=== PATIENT | male | born 1955 | race Caucasian/White ===

== ENCOUNTER → 2016-04-18 | Outpatient (CLI) | payer OTHER ==
[~2016-04-18] MED LIST: FLUT1INH7 INH; FURO-85 PO; HYDR-5688 PO; LISI-725 PO; METF1000 PO; METF1TAB53 PO; MULTCAP7 PO; OXYC5TAB PO; PRVHFAIN INH
--- NOTE | 2016-04-18 08:58 | DIAGNOSTIC IMAGING REPORT ---
CHEST 2 VIEWS ROUTINE CLINICAL HISTORY: Recurrent left pleural effusion. COMPARISON STUDY: Chest radiograph March 13, 2016. FINDINGS: Cardiomegaly is unchanged. The left pleural catheter has been removed. There is no pneumothorax. A small to moderate left pleural effusion has slightly increased. This may be loculated. There is no evidence for pulmonary edema. IMPRESSION: Slight increase in size of a small to moderate left pleural effusion which may be loculated. Electronically signed by: Hosea Pathak M.D. 04/18/2016 8:56 AM
== END | disposition home or self-care (01) ==
LOC: C.RAD 08:36
PROVIDERS: ATTEND Surgery
DX: J80 Acute respiratory distress syndrome (principal)

== ENCOUNTER → 2016-05-07 | Outpatient (CLI) | payer OTHER ==
--- NOTE | 2016-05-07 17:50 | ECHOCARDIOGRAM REPORT ---
*NOTICE TO RECEIVING DEMOCRAT AGENCY This information is strictly Confidential and protected under [place] law. [place] law prohibits you from making any further disclosure of this information unless further disclosure is expressly permitted by the written consent of the person to whom it pertains or is authorized by law. A general authorization for the release of medical or other information is not sufficient for this purpose. Hospital accepts no responsibility if the information is made available to any other person, INCLUDING THE PATIENT. 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 Mildly dilated left ventricle with mildly to moderately reduced systolic function. EF 40-45%. Global hypokinesis. No left ventricular hypertrophy. Diastolic dysfunction, Grade II (pseudonormalization pattern). * 2. No significant valvular abnormalities visualized. * 3. Technically difficult study. * 4. No prior study available for comparison. Procedure Details * A complete two-dimensional transthoracic echocardiogram was performed (2D, M-mode, Doppler and color flow Doppler). Left Ventricle * Mildly dilated left ventricle with mildly to moderately reduced systolic function. EF 40-45%. Global hypokinesis. No left ventricular hypertrophy. Right Ventricle * The right ventricle is normal in size and function. Atria * The left atrial size is normal. * Right atrial size is normal. * There is no evidence of atrial septal defect, but resolution does not allow assessment for a patent foramen ovale. Mitral Valve * The mitral valve is grossly normal. * There is no mitral valve stenosis. * Significant mitral regurgitation is absent. Tricuspid Valve * The tricuspid valve is not well visualized. * There is no tricuspid stenosis. * Significant tricuspid regurgitation is absent. Aortic Valve * The aortic valve is trileaflet. * No hemodynamically significant valvular aortic stenosis. * There is no significant aortic regurgitation. Pulmonic Valve * The pulmonary valve is inadequately visualized, but the Doppler data is adequate for interpretation. * There is no pulmonic valvular stenosis. * There is no significant pulmonary regurgitation. Great Vessels * The aortic root is normal size. Pericardium/Pleural * There is no pericardial effusion. Great Vessels * Normal inferior vena cava size and collapsability with sniff indicates a normal right atrial pressure of 3 mmHg Left Ventricular Diastolic Function * Diastolic dysfunction, Grade II (pseudonormalization pattern). MMode 2D Measurements and Calculations IVSd 1.1 cm IVSs 1.5 cm LVIDd 5.6 cm LVIDs 4.1 cm LVPWd 1.0 cm LVPWs 1.5 cm IVS/LVPW 1.1 FS 27.0 % EDV(Teich) 151.0 ml ESV(Teich) 72.4 ml EF(Teich) 52.0 % EDV(cubed) 171.6 ml ESV(cubed) 66.8 ml EF(cubed) 61.1 % % IVS thick 31.9 % % LVPW thick 45.8 % LV mass(C)d 234.4 grams LV mass(C)dI 95.6 grams/m\S\2 LV mass(C)s 229.8 grams LV mass(C)sI 93.7 grams/m\S\2 SV(Teich) 78.6 ml SI(Teich) 32.0 ml/m\S\2 SV(cubed) 104.8 ml SI(cubed) 42.8 ml/m\S\2 Ao root diam 4.2 cm Ao root area 13.7 cm\S\2 LA dimension 2.9 cm LA/Ao 0.69 LVOT diam 2.0 cm LVOT area 3.1 cm\S\2 LVAd ap4 28.1 cm\S\2 LVLd ap4 7.2 cm EDV(MOD-sp4) 91.1 ml EDV(sp4-el) 93.0 ml LVAs ap4 21.2 cm\S\2 LVLs ap4 7.2 cm ESV(MOD-sp4) 54.4 ml ESV(sp4-el) 52.6 ml EF(MOD-sp4) 40.2 % EF(sp4-el) 43.4 % LVAd ap2 31.9 cm\S\2 LVLd ap2 7.9 cm EDV(MOD-sp2) 112.5 ml EDV(sp2-el) 108.8 ml LVAs ap2 23.2 cm\S\2 LVLs ap2 7.5 cm ESV(MOD-sp2) 69.7 ml ESV(sp2-el) 60.9 ml EF(MOD-sp2) 38.1 % EF(sp2-el) 44.1 % LVLd %diff 8.9 % EDV(MOD-bp) 105.5 ml LVLs %diff 3.8 % ESV(MOD-bp) 62.3 ml EF(MOD-bp) 40.9 % SV(MOD-sp4) 36.6 ml SI(MOD-sp4) 14.9 ml/m\S\2 SV(MOD-sp2) 42.9 ml SI(MOD-sp2) 17.5 ml/m\S\2 SV(MOD-bp) 43.2 ml SI(MOD-bp) 17.6 ml/m\S\2 SV(sp4-el) 40.4 ml SI(sp4-el) 16.5 ml/m\S\2 SV(sp2-el) 48.0 ml SI(sp2-el) 19.6 ml/m\S\2 Doppler Measurements and Calculations MV E max yosef 76.2 cm/sec MV A max yosef 59.1 cm/sec MV E/A 1.3 MV P1/2t max yosef 70.7 cm/sec MV P1/2t 105.8 msec MVA(P1/2t) 2.1 cm\S\2 MV dec slope 195.9 cm/sec\S\2 MV dec time 0.20 sec Ao V2 max 131.0 cm/sec Ao max PG 6.9 mmHg Ao max PG (full) 2.6 mmHg TRACEE(V,A) 2.4 cm\S\2 TRACEE(V,D) 2.4 cm\S\2 LV V1 max PG 4.2 mmHg LV V1 max 103.0 cm/sec TV E max yosef 44.5 cm/sec PA V2 max 80.0 cm/sec PA max PG 2.6 mmHg
== END | disposition home or self-care (01) ==
LOC: C.CPL 13:47
PROVIDERS: ATTEND Internal Medicine Hematology & Oncology
DX: C83.30 Diffuse large B-cell lymphoma, unspecified site (principal)

== ENCOUNTER → 2016-05-08 | Outpatient (CLI) | payer OTHER ==
--- NOTE | 2016-05-08 11:04 | DIAGNOSTIC IMAGING REPORT ---
PET/CT HISTORY: LYMPHOMA TECHNIQUE: PET/CT was performed from the base of the skull through the pelvis following the intravenous administration of 14.97 mCi of F18-FDG. Non-contrast CT imaging was performed over the same range without breath-hold for attenuation correction of PET images and anatomic correlation, but not for primary interpretation as it is not of standard diagnostic quality. CT DOSE: COMPARISON: Chest abdomen and pelvis CT 01/18/2016. FINDINGS: HEAD AND NECK: There is no FDG-avid disease or significant lymphadenopathy in the imaged portions of the head and the neck. CHEST: A partially loculated small to moderate left pleural effusion has decreased in size. Multiple bilateral pulmonary nodules are again noted. These are better visualized within the left lung due to the decrease in size of the left pleural effusion. Dominant nodules within the right middle lobe measures 7 mm. These appear similar to the prior study. Interlobular septal thickening within the left lung may represent reexpansion pulmonary edema. Patchy left hilar FDG uptake favors lymphadenopathy. This demonstrates an SUV max of 3.7. Mild pericardial thickening without FDG uptake. There is 1.1 cm FDG avid superior mediastinal lymph node adjacent to the brachiocephalic vein. This demonstrates an SUV max of 3.5. Patchy infiltrative FDG avid soft tissue within the posterior mediastinum which partially surrounds the proximal to mid esophagus and extends into the subcarinal location. There is also abnormal FDG avid soft tissue within the paravertebral location from the T2-T6 level bilaterally. This extends along the left paravertebral location from the T6-T10 level. This abuts and may involve the left posterior medial pleura at these locations. This infiltrative soft tissue is consistent with the patient's history of lymphoma and demonstrates an SUV max of 7.9 within the left paravertebral location at the T9 level. There is soft tissue extending into the left T2-T3 and T3-T4 neural foramen. There is no bony destruction identified at this time. There is also a single FDG avid focus within the left posterior eighth intercostal space which demonstrates an SUV max of 3.4. There is suggestion of a small soft tissue abnormality at this location. This is best in image 109. ABDOMEN/PELVIS: Below the diaphragm, tracer is distributed physiologically in the gastrointestinal and genitourinary tracts. There is no significant lymphadenopathy and no FDG-avid disease. MUSCULOSKELETAL: There is no FDG-avid or destructive bone lesion. IMPRESSION: 1. FDG avid posterior mediastinal/paravertebral soft tissue as described above consistent with the patient's history of lymphoma. This has progressed compared to the prior chest CT. 2. An irregular FDG avid area the left hilum consistent with lymphadenopathy/tumor. 3. Multiple subcentimeter FDG avid pulmonary nodules which appear to be similar in size compared to the prior study. These do not demonstrate abnormal FDG uptake but are likely below the threshold for PET imaging. These also likely represent sites of metastatic disease. 4. Decrease in size in the small to moderate partially loculated left pleural effusion. 5. Single FDG avid soft tissue focus within the left posterior eighth intercostal space consistent with metastatic disease. Electronically signed by: Gomez Melara M.D. 05/08/2016 11:02 AM Dictated Date/Time: 05/08/2016 10:37 AM
== END | disposition home or self-care (01) ==
LOC: C.PET 08:12
PROVIDERS: ATTEND Internal Medicine Hematology & Oncology
DX: C85.90 Non-Hodgkin lymphoma, unspecified, unspecified site (principal)

== ENCOUNTER 2016-05-13 07:01 | Day surgery (SDC) | payer OTHER ==
[2016-05-08 12:23] VITALS: BMI 36.0
[~2016-05-13] VITALS: Ht 185.4 cm; Wt 125.0 kg
--- NOTE | 2016-05-13 07:00 | History and Physical ---
History & Physical Date May 13, 2016. History of Present Illness The patient is a 60 year old male with history of lymphoma of mediastinum and Lt pleural effusion for chemo and in need of access port Past Medical/Surgical History Medical Problems: (1) Mass of mediastinum (2) Pleural effusion Additional History Hepatic Disease: No Endocrine Disorder: Yes Hypertension: Yes Allergies Coded Allergies: No Known Allergies (Unverified , 05/13/16) Home Medications Scheduled Albuterol (Ventolin Hfa), 2 PUFFS INH prn Fluticasone Furoate-Vilanterol (Breo Ellipta 200-25 Mcg/INH), 1 PUFF INH DAILY Furosemide (Lasix), 20 MG PO PRN Lisinopril (Zestril), 20 MG PO QAM Metformin Hcl (Glucophage Ext Rel), 1,000 MG PO BID Multiple Vitamins W/ Minerals (Eye Vitamins), 1 CAP PO QAM Physical Examination Skin: warm/dry, no rash Neck: supple Respiratory/Chest: no respiratory distress Cardiovascular: regular rate, rhythm Abdomen / GI: non tender Extremities: normal inspection Neurologic/Psych: alert Diagnosis Lymphoma Plan of Treatment For access port- [facility], likely discharge home
[~2016-05-13 07:01] MED LIST changes: +CEFAZOLIN 3000 MG/65 ML D5W IV SCH; -HYDR-5688 PO; +LACTATED RINGER'S 1000ML 1,000 ML IV SCH; -METF1000 PO; -OXYC5TAB PO
[2016-05-13 07:21] VITALS: BP 150/93; PULSE 65; TEMP 36.6; O2SAT 97; Ht 185.4 cm; Wt 125.0 kg
[2016-05-13] MEDS ORDERED: HYDR-5688 PO (07:41)
--- NOTE | 2016-05-13 07:43 | Discharge Instructions ---
Discharge Instructions Visit Reason for Visit: Lymphoma, Diffuse Large B Cell, Non-Hodgkins Discharge Discharge Diagnosis / Problem: lymphoma, port placement Discharge Goals Goal(s): Decrease discomfort, Improve function, Improve disease control Activity Recommendations Activity Limitations: as noted below Lifting Limitations: no more than 25 pounds Exercise/Sports Limitations: until after follow-up appointment May Resume Sexual Activity: when tolerated Shower/Bathe: tomorrow Driving or Machine Use: resume 1 day after discharge SPECIAL CARE INSTRUCTIONS: * Cover incisions and change daily for comfort/drainage. * May use ibuprofen for pain as tolerated. * Expect some swelling and bruising. Call your doctor if: * Temperature above 101 degrees * Pain not relieved by pain medicine ordered * There is increased drainage or redness from any incision * You have any unanswered questions or concerns [phone]. FOLLOW UP VISIT: If not already scheduled, please call the office for a follow-up visit. for 2 weeks- [facility] OFFICE PHONE NUMBER: Dr. Koenig Office Anesthesia . Post Anesthesia Instructions: If you have had General Anesthesia or IV Sedation: * Do not drive today. * Resume driving when surgeon permits. * Do not make important decisions or sign legal documents today. * Call surgeon for: 1. Temperature elevations greater than 101 degrees F. 2. Uncontrollable pain. 3. Excessive bleeding. 4. Persistent nausea and vomiting. 5. Medication intolerance (nausea, vomiting or rash). * For nausea and vomiting use only clear liquids such as: tea, soda, bouillon until nausea subsides, then gradually increase diet as tolerated. * If you have any concerns or questions, call your surgeon's office. If physician is unavailable and it is an emergency, call 911 or go to the nearest emergency room. . Diet Recommendations Recommended Home Diet: resume previous diet Pending Studies Studies pending at discharge: no Medical Emergencies . Who to Call and When: Medical Emergencies: If at any time you feel your situation is an emergency, please call 911 immediately. . Non-Emergent Contact Non-Emergency issues call your: Surgeon . . "Provider Documentation" section prepared by Antonio Koenig.
[2016-05-13] MEDS ORDERED: MIDAZOLAM HCL 1 MG/ML 2ML VIAL ONE ×2 (07:49→07:50)
[2016-05-13] MEDS ORDERED: LIDOCAINE HCL 2% 2 ML VIAL (20MG/ML) ONE (08:42)
[2016-05-13] MEDS ORDERED: PROPOFOL IV EMULSION 10 MG/ML 20 ML VIAL IV ONE (08:43)
[2016-05-13] MEDS ORDERED: CEFAZOLIN SOD 1 GM VIAL IRRIG ONE (08:49)
[2016-05-13] MEDS ORDERED: HEPARIN SOD (PORCINE) 1000 UNIT/ML 10 ML VIAL FLUSH ONE (08:49)
[2016-05-13] MEDS ORDERED: LIDOCAINE HCL 1% 20 ML VIAL INJ ONE (08:49)
--- NOTE | 2016-05-13 08:53 | [facility] Operative Report ---
Operative Report Operative Date May 13, 2016. Pre-Operative Diagnosis lymphoma Post-Operative Diagnosis same, port placement Procedure(s) Performed port placement Surgeon Dr. Antonio Koenig Supervisor Last Model Department Surgeon(s) None Estimated Blood Loss 10ML Findings placed via Lt cephalic vein Specimens none per surgeon Anesthesia local/ sedation Complication(s) None Disposition Recovery Room / PACU I attest to the content of the Intraoperative Record and any orders documented therein. Any exceptions are noted below.
[2016-05-13] MEDS ORDERED: HYDROCODONE/ACETAMOPHEN 5/325MG TAB PO PRN ×2 (09:00)
--- NOTE | 2016-05-13 09:04 | OPERATIVE REPORT ---
DATE OF OPERATION: 05/13/2016 NAME OF OPERATION: Port placement. PREOPERATIVE DIAGNOSIS: Lymphoma. POSTOPERATIVE DIAGNOSIS: Same. STAFF SURGEON: Dr. Koenig. ANESTHESIA: 1% plain lidocaine with sedation. PROCEDURE: The patient was brought in the operating room and placed on the operating table in a supine position. His chest was prepped and draped, as well as his neck bilaterally. The left side was approached, skin and subcutaneous tissue over the left deltopectoral groove were anesthetized. Incision made carrying dissection down deeply into the deltopectoral groove, identifying the left cephalic vein. It was ligated distally and then opened. The catheter which had been prepared and heparinized was passed into the vein, and then under fluoroscopy down into the superior vena cava. It was then secured using 2-0 silk suture. It was aspirated and flushed with heparinized solution. A pocket was fashioned in the chest wall. The port attached to the catheter, placed into the pocket, secured to the chest wall using 3-0 Prolene suture. Then the site irrigated with antibiotic solution and then the subcutaneous tissue reapproximated using 2-0 chromic catgut suture, then the skin reapproximated using 4-0 nylon suture. Dressing applied and patient transferred to recovery room in stable condition. I attest to the content of the Intraoperative Record and any orders documented therein. Any exceptio ns are noted below.
[2016-05-13] MEDS ORDERED: ATROPINE SULFATE 0.1 MG/ML 5ML SYR IV PRN (09:15)
[2016-05-13] MEDS ORDERED: EpHEDrine SULFATE INJ 50 MG/ML AMP IV PRN (09:15)
--- NOTE | 2016-05-13 09:19 | Anesthesiology Progress Note ---
Anesthesia Post Op Note Date & Time May 13, 2016 at 09:19 Vital Signs Pain Intensity: 0 Vital Signs Past 12 Hours Date Time Temp Pulse Resp B/P Pulse Ox O2 Delivery O2 Flow Rate FiO2 05/13/16 09:15 52 14 119/64 95 Room Air 05/13/16 09:05 82 20 128/68 96 Room Air 05/13/16 08:57 36.4 67 16 113/83 95 Room Air 05/13/16 07:21 36.6 65 20 150/93 97 Room Air Notes Mental Status: alert / awake / arousable, participated in evaluation Pt Amnestic to Procedure: Yes Nausea / Vomiting: adequately controlled Pain: adequately controlled Airway Patency, RR, SpO2: stable & adequate BP & HR: stable & adequate Hydration State: stable & adequate Anesthetic Complications: no major complications apparent
--- NOTE | 2016-05-13 09:29 | DIAGNOSTIC IMAGING REPORT ---
CHEST ONE VIEW PORTABLE HISTORY: Lymphoma. Port placement. COMPARISON: Chest 04/18/2016. FINDINGS: There is a left subclavian Port-A-Cath with the tip terminating in the distal SVC. No pneumothorax. The right lung remains clear. Small to moderate left pleural effusion persists. The heart remains mildly enlarged. There is diffuse interstitial thickening, unchanged. IMPRESSION: 1. Left subclavian Port-A-Cath terminates in the distal SVC. No pneumothorax. 2. Ezgyy-[id number] left pleural effusion persists. Electronically signed by: Gomez Melara M.D. 05/13/2016 9:28 AM Dictated Date/Time: 05/13/2016 9:27 AM
[2016-05-13 09:35] VITALS: BP 119/70; PULSE 63; TEMP 36.8; O2SAT 97
[2016-05-13 10:05] VITALS: BP 119/72; PULSE 59; TEMP 36.8; O2SAT 95
[2016-05-13 10:35] VITALS: BP 110/75; PULSE 68; TEMP 36.6; O2SAT 95
== END 2016-05-13 10:35 | disposition home or self-care (01) ==
LOC: C.ACU 07:01
PROVIDERS: ATTEND Surgery
DX: C85.90 Non-Hodgkin lymphoma, unspecified, unspecified site (principal); J90 Pleural effusion, not elsewhere classified; E11.22 Type 2 diabetes mellitus with diabetic chronic kidney disease; I12.9 Hypertensive chronic kidney disease with stage 1 through stage 4 chronic kidney disease, or unspecified chronic kidney disease; Z68.36 Body mass index [BMI] 36.0-36.9, adult; Z90.49 Acquired absence of other specified parts of digestive tract; Z98.890 Other specified postprocedural states; N18.9 Chronic kidney disease, unspecified; E66.9 Obesity, unspecified

== ENCOUNTER → 2016-06-24 | Outpatient (CLI) | payer OTHER ==
[~2016-06-24] MED LIST changes: -CEFAZOLIN 3000 MG/65 ML D5W IV SCH; +HYDR-5688 PO; -LACTATED RINGER'S 1000ML 1,000 ML IV SCH
--- NOTE | 2016-06-24 09:45 | DIAGNOSTIC IMAGING REPORT ---
CHEST 2 VIEWS ROUTINE CLINICAL HISTORY: J90 Recurrent left pleural [id number] joint effusion COMPARISON STUDY: 05/13/2016 FINDINGS: Small left effusion. Central catheters in the superior vena cava. Right lung appears generally clear. IMPRESSION: Small chronic left pleural effusion similar in volume as compared to the prior study. Lungs otherwise are clear. Electronically signed by: William Morris M.D. 06/24/2016 9:44 AM Dictated Date/Time: 06/24/2016 9:43 AM
== END | disposition home or self-care (01) ==
LOC: C.RAD 08:53
PROVIDERS: ATTEND Surgery
DX: J90 Pleural effusion, not elsewhere classified (principal)

== ENCOUNTER → 2016-10-07 | Outpatient (CLI) | payer OTHER ==
--- NOTE | 2016-10-07 12:10 | DIAGNOSTIC IMAGING REPORT ---
PET/CT CLINICAL HISTORY: Lymphoma. COMPARISON STUDY: PET/CT dated 05/08/2016. Chest CT dated 01/20/[address] dated 01/18/2016. TECHNIQUE: One hour following the IV administration of 15.0 mCi of F-18 FDG, PET/CT examination was performed from the orbital meatal line through the bony pelvis. Noncontrast CT is performed for the purposes of anatomic correlation and attenuation correction. Note that this does not reflect a diagnostic CT examination. Images were reviewed on a separate [employer] independent workstation. Fused images were obtained. Standard uptake values reported are maximum values within the region of interest expressed in gm/mL. FINDINGS: PET FINDINGS: Head and neck: There is expected physiologic activity within the visualized brain parenchyma at the skull base and the salivary glands. No pathologically enlarged or FDG avid cervical lymph nodes are identified. Thorax: Evaluation of the thorax demonstrates expected physiologic myocardial activity. Numerous (at least 10) small pulmonary nodules are again noted. These have not significantly changed in size as compared to the 05/08/2016 examination. A insurance verification representative lesion in the right middle lobe on image #100 measures 7 mm. These were not demonstrably FDG avid but are likely too small for PET characterization. There are no pathologically enlarged or FDG avid mediastinal, hilar, or axillary lymph nodes. There is only minimal soft tissue thickening seen within the left apical paravertebral region seen on image #65. This measures up to 9 mm in thickness and is only faintly FDG avid with a maximum SUV of 2.0. Left paravertebral thickening at the left lung base at the level of T9 has also decreased in size. This is minimally FDG abdomen with a maximum severe 1.9. Abdomen and pelvis: There is expected activity within the liver, spleen, kidneys, renal collecting system, and bladder. Low-level bowel activity is likely within physical limits. The spleen is mildly enlarged measuring 14.5 cm in length. There are no pathologically enlarged or FDG avid lymph nodes seen in the abdomen, pelvis, or inguinal region. Unenhanced CT images: Visualized brain parenchyma the skull base is normal as imaged. The bony orbits are intact and orbital contents are normal in appearance. The visualized paranasal sinuses and the mastoid air cells are clear. The salivary and thyroid glands are normal as imaged. A left subclavian central venous infusion port is in place. The thoracic aorta is normal in caliber. The heart is top normal in size there is a small pericardial effusion. There is a small left pleural effusion which has decreased from previous. Loculated fluid is again noted in the left major fissure. No airspace consolidation is seen typical for pneumonia. The gallbladder surgically absent. The unenhanced liver adrenal glands are grossly normal. The spleen is mildly enlarged measuring 14.5 cm in length. The kidneys are atrophic and without hydronephrosis. There is marked fatty atrophy of the pancreas. The abdominal aorta is normal in course and caliber noting mild atherosclerotic calcification. There is no bowel obstruction. There are scattered sigmoid diverticula without CT evidence of acute diverticulitis. No intraperitoneal free air or abdominal ascites is seen. A normal appendix is noted. The bladder is decompressed and not evaluated. The prostate and seminal vesicles are normal as visualized. No lytic or blastic bony lesions are seen. Mild degenerative change is noted throughout the spine. IMPRESSION: 1. Overall positive response to treatment. 2. There is only mild soft tissue thickening seen in the left paravertebral regions described previously. The degree of FDG uptake is significantly decreased. 3. Numerous subcentimeter pulmonary nodules have not significantly changed and remain pathologically indeterminant. These are too small for PET characterization. 4. Mild splenomegaly. 5. A small left pleural effusion is noted. This has decreased in size from previous. 6. Additional changes as above. Electronically signed by: Ramon Gould M.D. 10/07/2016 12:09 PM Dictated Date/Time: 10/07/2016 11:50 AM
== END | disposition home or self-care (01) ==
LOC: C.PET 09:32
PROVIDERS: ATTEND Internal Medicine Hematology & Oncology
DX: C85.20 Mediastinal (thymic) large B-cell lymphoma, unspecified site (principal)

== ENCOUNTER → 2017-03-11 | Outpatient (CLI) | payer BC ==
[~2017-03-11] MED LIST changes: -HYDR-5688 PO
[2017-03-11 17:50] LABS: BASO % 0.4 %; BASO ABS # 0.02 K/uL (0-0.2); COMPLETE YES; EOS % 3.1 %; HEMATOCRIT 41.9 % (42-52); IG% 0.5 %; LYMPH ABS # 0.88 K/uL (1.2-3.4); MEAN CELL VOLUME 87.1 fL (80-100); MEAN CORPUSCULAR HEMOGLOBIN 30.1 pg (25-34); MEAN CORPUSCULAR HGB CONC 34.6 g/dl (32-36); MEAN PLATELET VOLUME 10.9 fL (7.4-10.4); MONO % 8.2 %; NEUT % 71.8 %; PLATELET COUNT 163 K/uL (130-400); RED BLOOD COUNT 4.81 M/uL (4.7-6.1)
[2017-03-11 18:04] LABS: ALT/SGPT 37 U/L (12-78); AST/SGOT 15 U/L (15-37); BLOOD UREA NITROGEN 7 mg/dl (7-18); CALCIUM 8.6 mg/dl (8.5-10.1); CARBON DIOXIDE 28 mmol/L (21-32); CHLORIDE 101 mmol/L (98-107); CREATININE 0.96 mg/dl (0.60-1.40); GLUCOSE 314 mg/dl (70-99); POTASSIUM 3.8 mmol/L (3.5-5.1); SODIUM 134 mmol/L (136-145)
[2017-03-11 18:10] LABS: ALKALINE PHOSPHATASE 111 U/L (45-117)
== END | disposition home or self-care (01) ==
LOC: C.LABPBG 14:38
PROVIDERS: ATTEND Nurse Practitioner Family
DX: C85.20 Mediastinal (thymic) large B-cell lymphoma, unspecified site (principal)

== ENCOUNTER → 2017-05-16 | Outpatient (CLI) | payer BC ==
[~2017-05-16] MED LIST changes: +OPTIRAY 320 IV PRN
--- NOTE | 2017-05-16 16:18 | DIAGNOSTIC IMAGING REPORT ---
CHEST CT WITH CONTRAST CT DOSE: 1723.06 mGycm HISTORY: LYMPHOMA TECHNIQUE: Multiaxial CT images of the chest were performed following the intravenous administration of contrast. A dose lowering technique was utilized adhering to the principles of ALARA. COMPARISON: Chest CT 01/20/2016. PET CT 10/07/2016. FINDINGS: A left PICC terminates in the distal SVC. No suspicious lytic or blastic osseous lesions. No pneumothorax. Mild narrowing within the proximal right upper lobe bronchus. This remains unchanged. Multiple scattered pulmonary nodules are again noted. These are not significantly changed. There are greater than 10 pulmonary nodules identified. Dominant nodule seen within the right middle lobe and left upper lobe measures up to 7 mm. Mild interstitial thickening at the lung bases. Linear density left lung base persist and favor subsegmental atelectasis or scarring. Hepatic steatosis. Cholecystectomy. The visualized spleen and adrenal glands are unremarkable. Small loculated pleural effusion seen within the left major fissure has slightly improved. Ill-defined/infiltrative soft tissue seen throughout the majority of the mediastinum is again noted. This is similar to the prior study. This is most pronounced at the AP window and surrounding the left main pulmonary artery. This results in mild mass effect along the left main pulmonary artery. This does not appear to be significantly changed from the recent PET/CT. Mild left pleural thickening has slightly improved. Ill-defined extrapleural soft tissue within the left paraspinal location has slightly improved. This currently measures up to 1 cm in thickness, previously measuring 1.6 cm. No filling defects within the central pulmonary arteries. No evidence for an aortic dissection. Stable dominant prevascular lymph node measuring 14 x 8 mm. IMPRESSION: 1. Slight improvement in the left pleural thickening, loculated small left pleural effusion, and ill-defined left paraspinal extrapleural soft tissue abnormality suggestive of improvement in disease. 2. No significant change in the ill-defined/infiltrative soft tissue within the mediastinum. This results in mild mass effect along the left pulmonary arteries. 3. Stable bilateral pulmonary nodules measuring up to 7 mm. Electronically signed by: Gomez Melara M.D. 05/16/2017 4:16 PM Dictated Date/Time: 05/16/2017 4:05 PM
--- NOTE | 2017-05-16 17:01 | DIAGNOSTIC IMAGING REPORT ---
CT OF THE ABDOMEN AND PELVIS WITH CONTRAST CLINICAL HISTORY: Lymphoma. COMPARISON STUDY: CT of the abdomen and pelvis January 18, 2016 and PET/CT October 07, 2016. TECHNIQUE: Following IV administration of 95 mL of Optiray-320, axial images of the abdomen and pelvis were obtained from the lung bases to the proximal femurs. Images were reviewed in the axial, sagittal, and coronal planes. IV contrast was administered without complication. A dose lowering technique was utilized adhering to the principles of ALARA. Oral contrast was administered. FINDINGS: The chest CT will be reported separately. Mild splenomegaly is unchanged. No splenic lesions are present. There is no biliary ductal dilatation status post cholecystectomy. The liver, adrenal glands, kidneys and pancreas are unremarkable. There is no hydronephrosis. There is no pancreatic ductal dilatation. Caliber and wall thickness of small and large bowel are normal. There is no abdominal or pelvic lymphadenopathy. The appendix is normal. There is no ascites. There are no suspicious osseous lesions. IMPRESSION: 1. No evidence for recurrent lymphoma within the abdomen or pelvis. No lymphadenopathy. 2. Stable mild splenomegaly. Electronically signed by: Hosea Pathak M.D. 05/16/2017 5:00 PM Dictated Date/Time: 05/16/2017 4:12 PM
== END | disposition home or self-care (01) ==
LOC: C.CTS 13:21
PROVIDERS: ATTEND Internal Medicine Hematology & Oncology
DX: C85.20 Mediastinal (thymic) large B-cell lymphoma, unspecified site (principal); R16.1 Splenomegaly, not elsewhere classified; J90 Pleural effusion, not elsewhere classified; R91.8 Other nonspecific abnormal finding of lung field

== ENCOUNTER → 2017-11-19 | Outpatient (CLI) | payer OTHER ==
--- NOTE | 2017-11-19 15:55 | DIAGNOSTIC IMAGING REPORT ---
CT SCAN OF THE CHEST, ABDOMEN, AND PELVIS WITH IV CONTRAST CLINICAL HISTORY: Lymphoma. COMPARISON STUDY: Chest CT scans dated to 06/01 and 01/18/2016. Abdominal CT dated 05/16/2017. PET/CT dated 10/07/2016. TECHNIQUE: Following the IV administration of 117 of Optiray 320, CT scan of the chest, abdomen, and pelvis was performed from the thoracic inlet to the proximal femora. Images are reviewed in the axial, sagittal, and coronal planes. IV contrast was administered without complication. A dose lowering technique was utilized adhering to the principles of ALARA. CT DOSE: 2042.09 mGy.cm FINDINGS: CHEST: Thyroid: Imaged portions of the thyroid gland are mildly enlarged and heterogeneous in attenuation. Thoracic aorta: The thoracic aorta is normal in caliber and demonstrates standard 3-vessel arch anatomy. No dissection is seen. A left subclavian central venous infusion port is in place. Pulmonary vasculature: The pulmonary trunk is normal in caliber. There are no filling defects identified in the central pulmonary vessels to indicate pulmonary embolus. Note that this examination was not protocoled for evaluation of the pulmonary arteries. Heart: The heart is top normal in size and without pericardial effusion. There are scattered coronary artery calcifications. Lungs and pleural spaces: Mild emphysematous change is identified. There is trace pleural fluid at the left lung base. Fluid is also noted along the left major fissure. Hyperdense pleural-based nodularity in the left lung suggests previous pleurodesis. Pleural thickening at the left lung base is unchanged and measures up to 9 mm seen on image #180. No airspace consolidation is seen typical for pneumonia. The trachea and central airways are clear. There is left basilar scarring/atelectasis. There are numerous pulmonary and pleural-based nodules scattered throughout both lungs (greater than 10) which measure up to 8 mm. The majority of these are unchanged from 05/16/2017. An 8 mm irregular nodule in the left upper lobe on image #106 is new from previous and may be on an inflammatory basis. Mediastinum: There is soft tissue thickening throughout the mediastinum, similar to previous. A prevascular node on image #97 is unchanged from previous, measuring 1.5 x 0.8 cm (previously measured 1.4 x 0.8 cm). Ill-defined soft tissue in the AP window is unchanged. This causes mild mass effect on the left pulmonary artery. Polly: Clear. Axillae: There is no axillary lymphadenopathy. Bony thorax: The skeletal structures appear osteopenic. No lytic or blastic lesions are identified. There is mild focal lumbar scoliosis. ABDOMEN AND PELVIS: Liver: The contrast-enhanced liver is enlarged, measuring 18.7 cm in length. The liver demonstrates diffusely diminished attenuation consistent with hepatic steatosis. There is no intrahepatic or ductal dilatation. The hepatic veins and portal veins are patent. Gallbladder: Surgically absent noting clips in the gallbladder fossa. Spleen: The spleen is mildly enlarged, measuring 14.8 cm in length. Pancreas: Moderately atrophic and grossly unremarkable. Adrenal glands: Unremarkable. Kidneys: The contrast enhanced kidneys demonstrate mild cortical atrophy and are without hydronephrosis. The kidneys enhance symmetrically. Abdominal vasculature: The abdominal aorta is normal in course and caliber noting mild atherosclerotic calcification. Bowel: The small bowel and colon are normal in course and caliber. The appendix is well-visualized and normal. Peritoneum: There is no intraperitoneal free air or abdominal ascites. There is a small fat-containing umbilical hernia. Lymphadenopathy: None. Pelvic viscera: The bladder, prostate, and seminal vesicles are normal as imaged. Skeletal structures: The skeletal structures appear osteopenic. There are bilateral pars defects at L5 with grade 1 anterolisthesis at L5-S1. No lytic or blastic lesions are seen. IMPRESSION: 1. Findings are overall similar to the 05/16/2017 examination. There is no evidence of progressive metastatic disease. 2. A mildly enlarged prevascular lymph node and ill-defined soft tissue throughout the mediastinum is unchanged. Some of this may represent treatment related change. 3. No pathologically enlarged lymph nodes are identified in the abdomen or pelvis. 4. Mild splenomegaly. 5. Hepatomegaly and hepatic steatosis. 6. Numerous (greater than 10) pulmonary and pleural-based nodules are overall similar to previous. 7. An 8 mm nodular density in the left upper lobe is new from previous and likely on an inflammatory basis. Attention at follow-up is recommended. 8. Left paravertebral soft tissue thickening is unchanged from previous. Hyperdense nodularity at the left lung base is likely related to previous pleurodesis. 9. Additional findings as above. Electronically signed by: Ramon Gould M.D. 11/19/2017 3:54 PM Dictated Date/Time: 11/19/2017 3:38 PM
== END | disposition home or self-care (01) ==
LOC: C.CTS 12:40
PROVIDERS: ATTEND Internal Medicine Hematology & Oncology
DX: C85.20 Mediastinal (thymic) large B-cell lymphoma, unspecified site (principal); K76.0 Fatty (change of) liver, not elsewhere classified

== ENCOUNTER → 2017-11-24 | Outpatient (CLI) | payer OTHER ==
[~2017-11-24] MED LIST changes: -OPTIRAY 320 IV PRN
[2017-11-24 09:00] LABS: BASO % 0.2 %; BASO ABS # 0.01 K/uL (0-0.2); EOS % 1.8 %; HEMOGLOBIN 15.6 g/dL (14.0-18.0); IG# 0.02 K/uL (0.00-0.02); LYMPH % 16.1 %; MEAN CELL VOLUME 83.8 fL (80-100); MEAN CORPUSCULAR HEMOGLOBIN 30.4 pg (25-34); MEAN CORPUSCULAR HGB CONC 36.3 g/dl (32-36); MEAN PLATELET VOLUME 11.3 fL (7.4-10.4); MONO % 6.6 %; MONO ABS # 0.37 K/uL (0.11-0.59); NEUT % 74.9 %; PLATELET COUNT 134 K/uL (130-400); RED CELL DISTRIBUTION WIDTH CV 11.9 % (11.5-14.5); RED CELL DISTRIBUTION WIDTH SD 36.2 fL (36.4-46.3)
[2017-11-24 09:27] LABS: ALBUMIN 3.6 gm/dl (3.4-5.0); ALKALINE PHOSPHATASE 114 U/L (45-117); ALT/SGPT 40 U/L (12-78); AST/SGOT 23 U/L (15-37); BLOOD UREA NITROGEN 10 mg/dl (7-18); CALCIUM 8.8 mg/dl (8.5-10.1); CARBON DIOXIDE 26 mmol/L (21-32); CREATININE 0.91 mg/dl (0.60-1.40); GLUCOSE 365 mg/dl (70-99); SODIUM 134 mmol/L (136-145); TOTAL PROTEIN 6.8 gm/dl (6.4-8.2)
== END | disposition home or self-care (01) ==
LOC: C.LABSPEC 08:48
PROVIDERS: ATTEND Internal Medicine Hematology & Oncology
DX: C85.20 Mediastinal (thymic) large B-cell lymphoma, unspecified site (principal)